=== PATIENT | female | born 1960 | race Caucasian/White ===

== ENCOUNTER 2024-09-13 17:08 | Emergency (ER) | payer MEDICAID ==
[~2024-09-13] VITALS: Ht 172.7 cm; Wt 65.8 kg
[2024-09-13] MEDS: KETOROLAC TROMETHAMINE INJ 30 MG/ML VIAL IM ONE (18:00)
[2024-09-13] MEDS ORDERED: KETOROLAC TROMETHAMINE INJ 30 MG/ML VIAL ONE (18:18)
[2024-09-13] MEDS ORDERED: KETO10TA2 PO (19:18)
[2024-09-13 19:25] VITALS: BP 126/79; TEMP 98.2; O2SAT 99
== END 2024-09-13 19:42 | disposition home or self-care (01) ==
LOC: ER 17:17
DX: M79.642 Pain in left hand (principal); M25.532 Pain in left wrist; W18.39XA Other fall on same level, initial encounter; Y93.89 Activity, other specified; Y92.89 Other specified places as the place of occurrence of the external cause; Y99.8 Other external cause status
CPT/HCPCS: 99284; 29125; 96372; 73120; 73110; J1885